=== PATIENT | male | born 1945 | race Caucasian/White ===

== ENCOUNTER 2019-04-02 08:11 | Emergency (ER) | payer MEDICARE, OTHER ==
[~2019-04-02] VITALS: Ht 175.3 cm; Wt 69.8 kg
[~2019-04-02 08:11] MED LIST: ASPIRIN EC325 MG PO; CENTRUM SILVER1 EAC3 PO; METOPROLOL SUCC50 MG PO
== END 2019-04-02 08:41 | disposition home or self-care (01) ==
LOC: ED 08:11
DX: K59.00 Constipation, unspecified (principal); I10 Essential (primary) hypertension; Z88.5 Allergy status to narcotic agent; Z88.8 Allergy status to other drugs, medicaments and biological substances; Z79.82 Long term (current) use of aspirin; Z79.899 Other long term (current) drug therapy
CPT/HCPCS: 99283

== ENCOUNTER 2022-06-08 06:50 | Emergency (ER) | payer MEDICARE, OTHER ==
[~2022-06-08] VITALS: Ht 175.3 cm; Wt 69.8 kg
[2022-06-08] MEDS ORDERED: LISINOPRIL20 MG PO (07:05)
[2022-06-08] MEDS ORDERED: CONSTULOSE10 GM/15 M PO (07:05)
[2022-06-08] MEDS ORDERED: DICLOFENAC POTA25 MG PO (07:47)
[2022-06-08] MEDS ORDERED: PREDNISONE20 MG PO (07:47)
== END 2022-06-08 08:40 | disposition home or self-care (01) ==
LOC: ED 06:50
DX: M25.461 Effusion, right knee (principal); I10 Essential (primary) hypertension; Z88.8 Allergy status to other drugs, medicaments and biological substances; Z88.5 Allergy status to narcotic agent; Z79.899 Other long term (current) drug therapy
CPT/HCPCS: 73560; 96372; 99283-25; J1885; J7512

== ENCOUNTER 2024-05-23 21:09 | Emergency (ER) | payer OTHER, MEDICARE ==
[~2024-05-23] VITALS: Ht 175.3 cm; Wt 71.0 kg
[~2024-05-23 21:09] MED LIST changes: +CONSTULOSE10 GM/15 M PO; +DICLOFENAC POTA25 MG PO; +LISINOPRIL20 MG PO; +PREDNISONE20 MG PO
[2024-05-23 21:56] LABS: BASOPHILS 0.4 % (0-2); EOSINOPHILS 1.9 % (0-6); HEMATOCRIT 42.6 % (35.0-50.0); HEMOGLOBIN 14.2 g/dL (12.0-18.0); LYMPHOCYTES 26.5 % (24-44); MCH 29.4 (27-36); MCHC 33.3 g/dl (30-36); MCV 88.2 fl (81-99); NEUTROPHILS 61.2 % (39-80); PLATELET COUNT 169 K/uL (140-440); RBC 4.83 M/ul (4.3-5.7); RDW 14.3 (10.5-15.0)
[2024-05-23 22:09] LABS: ALBUMIN 3.7 g/dL (3.4-5.0); ALBUMIN/GLOBULIN RATIO 1.19 (1.1-2.4); ALCOHOL, MEDICAL <3 ng/dL (<3); ALKALINE PHOSPHATASE 100 U/L (46-116); ALT (SGPT) 26 U/L (14-59); ANION GAP 10.2 (7-21); AST (SGOT) 15 U/L (15-37); BILIRUBIN, TOTAL 0.3 ng/dL (0.2-1.0); BUN/CREATININE RATIO 19.09 (6.0-28.6); CALCIUM 8.9 mg/dL (8.5-10.1); CARBON DIOXIDE 29 mmol/L (21-32); CHLORIDE 103 mmol/L (98-107); GLOMERULAR FILTRATION RATE,EST 69 mL/min (>60); POTASSIUM 4.2 mmol/L (3.5-5.1); PROTEIN, TOTAL 6.8 g/dL (6.4-8.2); UREA NITROGEN 21 mg/dL (7-18)
[2024-05-23] MEDS ORDERED: KETOROLAC TROMETHAMINE 30 MG/ML VIAL IV ONE (22:15)
[2024-05-23 23:25] LABS: BILIRUBIN, URINE NEGATIVE (negative); BLOOD/HGB, URINE NEGATIVE (Negative); KETONE, URINE NEGATIVE (Negative); LEUK ESTERASE, URINE NEGATIVE (negative); NITRITE, URINE NEGATIVE (negative)
[2024-05-23] MEDS ORDERED: TRAMADOL HCL50 MG PO (23:32)
[2024-05-23 23:40] LABS: AMPHETAMINES, URINE NEGATIVE (NEGATIVE); BARBITURATES, URINE NEGATIVE (NEGATIVE); BENZODIAZEPINE, URINE NEGATIVE (NEGATIVE); BUPRENORPHINE, URINE NEGATIVE (NEGATIVE); CANNABINOID, URINE NEGATIVE (NEGATIVE); COCAINE, URINE NEGATIVE (NEGATIVE); ECSTASY, URINE NEGATIVE (NEGATIVE); FENTANYL, URINE NEGATIVE (NEGATIVE); METHADONE, URINE NEGATIVE (NEGATIVE); OPIATES, URINE NEGATIVE (NEGATIVE); OXYCODONE, URINE NEGATIVE (NEGATIVE); PHENCYCLIDINE, URINE NEGATIVE (NEGATIVE)
[2024-05-23 23:50] VITALS: BP 167/84
== END 2024-05-23 23:50 | disposition home or self-care (01) ==
LOC: ED 21:09
PROVIDERS: Family Medicine
DX: S20.212A Contusion of left front wall of thorax, initial encounter (principal); I10 Essential (primary) hypertension; F03.90 Unspecified dementia, unspecified severity, without behavioral disturbance, psychotic disturbance, mood disturbance, and anxiety; Z88.8 Allergy status to other drugs, medicaments and biological substances; Z88.5 Allergy status to narcotic agent; Z79.899 Other long term (current) drug therapy; W11.XXXA Fall on and from ladder, initial encounter
CPT/HCPCS: 36415; 70450; 71260; 72125; 80053; 80307; 81003; 85025; 99283-25; G0480; J1885; Q9967